=== PATIENT | male | born 1960 | race Hispanic/Latino ===

== ENCOUNTER 2022-01-29 11:42 | Emergency (ER) | payer SELFPAY ==
[2022-01-29] MEDS ORDERED: SODIUM CHLORIDE 0.9% 500 ML 500 ML IV ONE (12:47)
--- NOTE | 2022-01-29 12:51 | Emergency Department Report ---
ED General Adult HPI - General Chief complaint: Seizure Stated complaint: I do not know what happened Time Seen by Provider: 01/29/22 12:38 Source: patient, EMS ( EMS documentation not available at time of chart dictation ), RN notes reviewed, old records reviewed Mode of arrival: Stretcher Limitations: No Limitations - History of Present Illness Initial comments: The patient was evaluated in the emergency department for symptoms described in the history of present illness. He/she was evaluated in the context of the global COVID-19 pandemic, which necessitated consideration that the patient might be at risk for infection with the virus that causes COVID-19. Institutional protocols and algorithms that pertain to the evaluation of patients at risk for COVID-19 are in a state of rapid change based on information released by regulatory bodies including the CDC and federal and state organizations. These policies and algorithms were followed during the patient's care in the emergency department. Please note that these policies, procedures and recommendations changed on a rapid basis. This is a pleasant and cooperative 61-year-old gentleman. He had COVID-19 last month. He is a former tobacco smoker. To the best of his knowledge, he does not have chronic medical conditions. He was at the [employer] today in his usual state of health, when he reports that he felt dizzy, lightheaded, and lost consciousness. He thinks that he hit his head. Prior to the event, he denies headache, neck pain, chest pain, abdominal pain, vomiting. He denies travel, surgery, immobilization, leg pain or leg swelling. He denies hematemesis and bright red blood per rectum. He reports that he had a similar episode of loss of consciousness a few months ago. He states that he feels like he is back to his baseline at this time. To the best of his knowledge, this is otherwise not happened -: Sudden Severity scale (0 -10): 0 Consistency: now resolved Improves with: none Worsens with: none Associated Symptoms: denies other symptoms - Related Data Home Medications Medication Instructions Recorded Confirmed Last Taken Multivitamin [Multi Vitamin Daily] 1 each PO QDAY 12/07/13 12/31/13 12/30/13 Amino Acids [High Protein] 1 each PO QDAY 12/31/13 12/31/13 12/30/13 Cyanocobalamin (Vitamin B-12) 500 mcg PO QDAY 07/12/31/13 12/30/13 [B-12] Previous Rx's Medication Instructions Recorded Last Taken Type HYDROcodone/APAP 5-325 [[place] 1 - 2 each PO Q4HR PRN #30 tablet 12/31/13 Unknown Rx 5/325] Allergies Allergy/AdvReac Type Severity Reaction Status Date / Time No Known Allergies Allergy Verified 01/29/22 11:51 ED Review of Systems ROS: Stated complaint: SEIZURE Other details as noted in HPI Constitutional: denies: fever Eyes: denies: eye discharge ENT: denies: epistaxis Respiratory: denies: cough Cardiovascular: syncope. denies: chest pain Gastrointestinal: denies: abdominal pain, nausea, vomiting, hematemesis, melena, hematochezia Genitourinary: denies: dysuria Musculoskeletal: denies: back pain Neurological: headache. denies: weakness Hematological/Lymphatic: denies: easy bleeding ED Past Medical Hx - Past Medical History Previous Medical History?: No - Social History Smoking Status: Current Every Day Smoker - Medications Home Medications: Home Medications Medication Instructions Recorded Confirmed Last Taken Type Multivitamin [Multi Vitamin Daily] 1 each PO QDAY 12/07/13 12/31/13 12/30/13 History Amino Acids [High Protein] 1 each PO QDAY 12/31/13 12/31/13 12/30/13 History Cyanocobalamin (Vitamin B-12) 500 mcg PO QDAY 12/31/13 12/31/13 12/30/13 History [B-12] HYDROcodone/APAP 5-325 [[place] 1 - 2 each PO Q4HR PRN #30 tablet 12/31/13 Unknown Rx 5/325] ED Physical Exam - General Limitations: No Limitations General appearance: alert, anxious, obese - Head Head exam: Present: atraumatic, normocephalic - Eye Eye exam: Present: normal appearance, EOMI. Absent: nystagmus - ENT ENT exam: Present: normal exam, normal orophraynx, mucous membranes moist, normal external ear exam - Neck Neck exam: Present: normal inspection, full ROM. Absent: tenderness, meningismus - Respiratory Respiratory exam: Present: normal lung sounds bilaterally. Absent: respiratory distress, wheezes, rales, rhonchi, stridor, decreased breath sounds - Cardiovascular Cardiovascular Exam: Present: normal rhythm, tachycardia, normal heart sounds. Absent: bradycardia, irregular rhythm, systolic murmur, diastolic murmur, rubs, gallop - GI/Abdominal GI/Abdominal exam: Present: soft. Absent: distended, tenderness, guarding, rebo und, rigid, pulsatile mass - Rectal Rectal exam: Present: deferred - Extremities Exam Extremities exam: Present: normal inspection - Back Exam Back exam: Present: normal inspection, full ROM. Absent: tenderness, CVA tenderness (L), paraspinal tenderness, vertebral tenderness - Neurological Exam Neurological exam: Present: alert, oriented X3, other (No facial droop. Tongue midline. Extraocular movements intact bilaterally. Facial sensation intact to light touch in V1, V2, V3 distribution bilaterally. 5 and a 5 strength in 4 extremities. Sensation intact to light touch in 4 extremities.). Absent: motor sensory deficit - Psychiatric Psychiatric exam: Present: anxious - Skin Skin exam: Present: warm, dry, intact, normal color. Absent: rash ED Course Vital Signs 01/29/22 01/29/22 11:48 12:06 Temperature 98.7 F Pulse Rate 130 H 113 H Respiratory 16 18 Rate Blood Pressure 162/81 129/79 [Left] O2 Sat by Pulse 99 91 Oximetry - Reevaluation(s) Reevaluation #1: 01/29/22 14:44 Differential diagnosis, include but not limited to: Orthostasis, vagal event, structural cardiac disease, closed head injury, syncope, seizure, pulmonary embolism, long COVID Assessment and plan: 61-year-old gentleman who was tachycardic and hypoxic, reports recent diagnosis of COVID-19 last month. Very suspicious for pulmonary embolism The patient is awake, alert, oriented, sober, of sound mind and exhibits decision-making capacity. Patient is clinically sober at this time. The cervical spine is cleared through nexus and [place] islander c spine rule Laboratory studies are reviewed and appreciated. TSH reviewed and appreciated. The patient is not encephalopathic. CT scan of the brain is negative for acute findings. CT angiogram chest is pending at this time. Have recommended admission to the medical service for tachycardia, hypoxia, syncope and abnormal EKG. Patient is ambivalent about this at this point in time. We will discuss further once CT scan chest has resulted. Transaminitis appreciated, there is no right upper quadrant tenderness 01/29/22 15:03 CT scan chest reviewed and appreciated. No pulmonary embolism was identified. Nonspecific hepatic functions and abnormalities are appreciated. Went back to discussed with patient and son at the bedside. Patient gave consent to have details of care fully discussed in front of family member. Have recommended admission to the medical service for unprovoked syncope and abnormal EKG. Patient and son discussing. Specifically discussed risks of leaving, including , disability, paralysis, loss of quality of life. Patient presents is awake, alert, oriented, sober, of sound mind and exhibits decision-making capacity. He is asking to speak to family member, and decide. 01/29/22 15:31 On final reassessment, patient is adamant that he is going to be discharged. The patient understands that he is going to be leaving against medical recommendations. Risks of leaving, including , disability, paralysis, permanent loss of quality of life are discussed with patient and his family member/son is at the bedside. Nurse Holly Preston also aware and present for conversations. Patient understands that he may return to the emergency room right away if and when he changes his mind. He is not currently hypoxic at this time. The patient currently presents is awake, alert, oriented, sober, of sound mind and exhibits decision-making capacity. He understands that he may return right away if and when he changes his mind. He is also instructed to not drive or operate motor vehicles for the next 6 months ED Medical Decision Making - Lab Data Result diagrams: 01/29/22 12:57 01/29/22 12:57 Vital Signs 01/29/22 01/29/22 11:48 12:06 Temperature 98.7 F Pulse Rate 130 H 113 H Respiratory 16 18 Rate Blood Pressure 162/81 129/79 [Left] O2 Sat by Pulse 99 91 Oximetry Lab Results 01/29/22 01/29/22 01/29/22 Range/Units 12:57 12:57 12:57 WBC 5.8 (4.5-11.0) K/mm3 RBC 4.29 (3.65-5.03) M/mm3 Hgb 14.1 (11.8-15.2) gm/dl Hct 41.8 (35.5-45.6) % MCV 97 H (84-94) fl MCH 33 H (28-32) pg MCHC 34 (32-34) % RDW 14.8 (13.2-15.2) % Plt Count 69 L (140-440) K/mm3 Lymph % (Auto) 15.3 (13.4-35.0) % [place] % (Auto) 10.4 H (0.0-7.3) % Eos % (Auto) 1.1 (0.0-4.3) % Baso % (Auto) 0.6 (0.0-1.8) % Lymph # (Auto) 0.9 L (1.2-5.4) K/mm3 [place] # (Auto) 0.6 (0.0-0.8) K/mm3 Eos # (Auto) 0.1 (0.0-0.4) K/mm3 Baso # (Auto) 0.0 (0.0-0.1) K/mm3 Seg Neutrophils % 72.6 H (40.0-70.0) % Seg Neutrophils # 4.2 (1.8-7.7) K/mm3 PT 14.6 (12.2-14.9) Sec. INR 1.03 (0.87-1.13) D-Dimer 250.77 H (0-234) ng/mlDDU Sodium 140 (137-145) mmol/L Potassium 4.2 (3.6-5.0) mmol/L Chloride 105.3 (98-107) mmol/L Carbon Dioxide 20 L (22-30) mmol/L Anion Gap 19 mmol/L BUN 15 (9-20) mg/dL Creatinine 0.8 (0.8-1.3) mg/dL Estimated GFR > 60 ml/min BUN/Creatinine Ratio 19 % Glucose 124 H (75-100) mg/dL Calcium 9.1 (8.4-10.2) mg/dL Magnesium 2.00 (1.7-2.3) mg/dL Total Bilirubin 0.80 (0.1-1.2) mg/dL AST 100 H (5-40) units/L ALT 76 H (7-56) units/L Alkaline Phosphatase 124 (35-129) units/L Total Creatine Kinase (55-170) units/L Troponin T < 0.010 (0.00-0.029) ng/mL Total Protein 8.3 H (6.3-8.2) g/dL Albumin 3.7 L (3.9-5) g/dL Albumin/Globulin Ratio 0.8 % TSH (0.270-4.200) mlU/mL Salicylates (2.8-20.0) mg/dL Acetaminophen (10.0-30.0) ug/mL Plasma/Serum Alcohol (0-0.07) % 01/29/22 01/29/22 01/29/22 Range/Units 12:57 12:57 12:57 WBC (4.5-11.0) K/mm3 RBC (3.65-5.03) M/mm3 Hgb (11.8-15.2) gm/dl Hct (35.5-45.6) % MCV (84-94) fl MCH (28-32) pg MCHC (32-34) % RDW (13.2-15.2) % Plt Count (140-440) K/mm3 Lymph % (Auto) (13.4-35.0) % [place] % (Auto) (0.0-7.3) % Eos % (Auto) (0.0-4.3) % Baso % (Auto) (0.0-1.8) % Lymph # (Auto) (1.2-5.4) K/mm3 [place] # (Auto) (0.0-0.8) K/mm3 Eos # (Auto) (0.0-0.4) K/mm3 Baso # (Auto) (0.0-0.1) K/mm3 Seg Neutrophils % (40.0-70.0) % Seg Neutrophils # (1.8-7.7) K/mm3 PT (12.2-14.9) Sec. INR (0.87-1.13) D-Dimer (0-234) ng/mlDDU Sodium (137-145) mmol/L Potassium (3.6-5.0) mmol/L Chloride (98-107) mmol/L Carbon Dioxide (22-30) mmol/L Anion Gap mmol/L BUN (9-20) mg/dL Creatinine (0.8-1.3) mg/dL Estimated GFR ml/min BUN/Creatinine Ratio % Glucose (75-100) mg/dL Calcium (8.4-10.2) mg/dL Magnesium (1.7-2.3) mg/dL Total Bilirubin (0.1-1.2) mg/dL AST (5-40) units/L ALT (7-56) units/L Alkaline Phosphatase (35-129) units/L Total Creatine Kinase (55-170) units/L Troponin T (0.00-0.029) ng/mL Total Protein (6.3-8.2) g/dL Albumin (3.9-5) g/dL Albumin/Globulin Ratio % TSH 14.730 H (0.270-4.200) mlU/mL Salicylates < 0.3 L (2.8-20.0) mg/dL Acetaminophen 5.0 L (10.0-30.0) ug/mL Plasma/Serum Alcohol (0-0.07) % 01/29/22 01/29/22 Range/Units 12:57 12:57 WBC (4.5-11.0) K/mm3 RBC (3.65-5.03) M/mm3 Hgb (11.8-15.2) gm/dl Hct (35.5-45.6) % MCV (84-94) fl MCH (28-32) pg MCHC (32-34) % RDW (13.2-15.2) % Plt Count (140-440) K/mm3 Lymph % (Auto) (13.4-35.0) % [place] % (Auto) (0.0-7.3) % Eos % (Auto) (0.0-4.3) % Baso % (Auto) (0.0-1.8) % Lymph # (Auto) (1.2-5.4) K/mm3 [place] # (Auto) (0.0-0.8) K/mm3 Eos # (Auto) (0.0-0.4) K/mm3 Baso # (Auto) (0.0-0.1) K/mm3 Seg Neutrophils % (40.0-70.0) % Seg Neutrophils # (1.8-7.7) K/mm3 PT (12.2-14.9) Sec. INR (0.87-1.13) D-Dimer (0-234) ng/mlDDU Sodium (137-145) mmol/L Potassium (3.6-5.0) mmol/L Chloride (98-107) mmol/L Carbon Dioxide (22-30) mmol/L Anion Gap mmol/L BUN (9-20) mg/dL Creatinine (0.8-1.3) mg/dL Estimated GFR ml/min BUN/Creatinine Ratio % Glucose (75-100) mg/dL Calcium (8.4-10.2) mg/dL Magnesium (1.7-2.3) mg/dL Total Bilirubin (0.1-1.2) mg/dL AST (5-40) units/L ALT (7-56) units/L Alkaline Phosphatase (35-129) units/L Total Creatine Kinase 127 (55-170) units/L Troponin T (0.00-0.029) ng/mL Total Protein (6.3-8.2) g/dL Albumin (3.9-5) g/dL Albumin/Globulin Ratio % TSH (0.270-4.200) mlU/mL Salicylates (2.8-20.0) mg/dL Acetaminophen (10.0-30.0) ug/mL Plasma/Serum Alcohol < 0.01 (0-0.07) % - EKG Data -: EKG Interpreted by In EKG shows normal: sinus rhythm Rate: tachycardia - EKG Data When compared to previous EKG there are: previous EKG unavailable 01/29/22 14:42 The EKG is interpreted at 12: 44 Sinus rhythm, tachycardia, rate 107 bpm. Borderline rightward axis deviation, right bundle branch block, QTC 4 9 7 ms. Denies chest pain. This is an abnormal EKG. This is not a STEMI. - Radiology Data Radiology results: pending, report reviewed, image reviewed CT head/brain wo con INDICATION: syncope and closed head injury. TECHNIQUE: Routine CT head without contrast. All CT scans at this location are performed using CT dose reduction for ALARA by means of automated exposure control. COMPARISON: None. FINDINGS: BRAIN / INTRACRANIAL CONTENTS: No acute hemorrhage, brain edema, mass effect, or hydrocephalus. Normal echeverria-white differentiation. No chronic infarct or focal atrophy. Normal brain volume and ventricular/sulcal size for age. CALVARIUM/SKULL BASE/CRANIOCERVICAL JUNCTION: No evidence of fracture. ORBITS: No significant abnormality of visualized orbits. SINUSES / MASTOIDS: No significant abnormality of visualized sinuses and mastoid air cells. ADDITIONAL FINDINGS: None. IMPRESSION: 1. No acute post- traumatic intracranial abnormality. Signer Name: Gavin Cordero MD Signed: 01/29/2022 1:17 PM Workstation Name: [id number] CTA CHEST WITH CONTRAST INDICATION / CLINICAL INFORMATION: syncope and closed head injury. TECHNIQUE: Axial CT images were obtained through the chest after injection of 100 cc Omnipaque 350 IV contrast. 3 plane MIP and/or 3D reconstructions were produced. All CT scans at this location are performed using CT dose reduction for ALARA by means of automated exposure control. COMPARISON: None available. FINDINGS: PULMONARY ARTERIES: No pulmonary emboli. THORACIC AORTA: Mild atherosclerotic calcification without acute abnormality. HEART: No significant abnormality. CORONARY ARTERY CALCIFICATION: Mild. MEDIASTINUM / CLAUDINE: No significant abnormality. PLEURA: No pleural effusion. No pneumothorax. LUNGS: No acute air space or interstitial disease. Scarring versus atelectasis within the posterior right lower lobe. ADDITIONAL FINDINGS: None. UPPER ABDOMEN: Suggestion of a dilated pancreatic duct and dilated common bile duct. SKELETAL STRUCTURES: No significant osseous abnormality. IMPRESSION: 1. No CT evidence for pulmonary embolism. 2. Suggestion of a dilated pancreatic duct and common bile duct. When clinically feasible a right upper quadrant ultrasound is recommended for further evaluation. Signer Name: Uriel Packer DO Critical Care Time: Yes Critical care time in (mins) excluding proc time.: 35 Critical care attestation.: If time is entered above; I have spent that time in minutes in the direct care of this critically ill patient, excluding procedure time. ED Disposition Clinical Impression: Hypoxia, Closed head injury, Transaminitis Disposition: 07 LEFT AGAINST MEDICAL ADVICE Is pt being admited?: No Does the pt Need Aspirin: No Condition: Undetermined Additional Instructions: As we discussed, you have left the hospital/emergency room AGAINST MEDICAL ADVICE. By leaving, you risked , disability, paralysis, permanent loss of quality of life. The ER is open 24 hours a day, 7 days a week. It never closes. Please return to the emergency room right away if and when you change your mind. If you decide not to return to the emergency room, please follow-up with the listed physician referrals as soon as possible. Do not drive or operate motor vehicles for the next 6 months, or until cleared to do so by a primary care doctor or general labor. Follow-up as soon as possible with an outpatient primary care doctor or general labor Avoid consumption of alcohol, tobacco, smoke products, and acetaminophen/Tylenol May go into the healthcare.gov website, and obtain insurance through affordable care act/Medicaid expansion Referrals: [facility] [Provider Group] - [facility] [Provider Group] - [facility] [Provider Group] - [facility] [Provider Group] - [facility] Forms: AMA Form
[2022-01-29 13:17] LABS: Basophils % (Auto) 0.6 % (0.0-1.8); Eosinophils # (Auto) 0.1 K/mm3 (0.0-0.4); Eosinophils % (Auto) 1.1 % (0.0-4.3); Hematocrit 41.8 % (35.5-45.6); Hemoglobin 14.1 gm/dl (11.8-15.2); Lymphocytes # (Auto) 0.9 K/mm3 (1.2-5.4); Lymphocytes % (Auto) 15.3 % (13.4-35.0); Mean Corpuscular HGB Conc 34 % (32-34); Mean Corpuscular Volume 97 fl (84-94); Monocytes # (Auto) 0.6 K/mm3 (0.0-0.8); Monocytes % (Auto) 10.4 % (0.0-7.3); Platelet Count 69 K/mm3 (140-440); Red Blood Count 4.29 M/mm3 (3.65-5.03); Red Cell Distribution Width 14.8 % (13.2-15.2)
[2022-01-29 13:26] LABS: INR 1.03 (0.87-1.13)
[2022-01-29 13:43] LABS: Alanine Aminotransferase 76 units/L (7-56); Albumin 3.7 g/dL (3.9-5); BUN/Creatinine Ratio 19; Blood Urea Nitrogen 15 mg/dL (9-20); Calcium 9.1 mg/dL (8.4-10.2); Hemolysis Index 11
--- NOTE | 2022-01-29 14:22 | Cat Scan Report ---
CT head/brain wo con INDICATION: syncope and closed head injury. TECHNIQUE: Routine CT head without contrast. All CT scans at this location are performed using CT dose reduction for ALARA by means of automated exposure control. COMPARISON: None. FINDINGS: BRAIN / INTRACRANIAL CONTENTS: No acute hemorrhage, brain edema, mass effect, or hydrocephalus. Polina l echeverria-white differentiation. No chronic infarct or focal atrophy. Normal brain volume and ventricula r/sulcal size for age. CALVARIUM/SKULL BASE/CRANIOCERVICAL JUNCTION: No evidence of fracture. ORBITS: No significant abnormality of visualized orbits. SINUSES / MASTOIDS: No significant abnormality of visualized sinuses and mastoid air cells. ADDITIONAL FINDINGS: None. IMPRESSION: 1. No acute post-traumatic intracranial abnormality. Signer Name: Gavin Cordero MD Signed: 01/29/2022 2:17 PM Workstation Name: [id number]
--- NOTE | 2022-01-29 14:48 | Cat Scan Report ---
CTA CHEST WITH CONTRAST INDICATION / CLINICAL INFORMATION: syncope and closed head injury. TECHNIQUE: Axial CT images were obtained through the chest after injection of 100 cc Omnipaque 350 IV contrast. 3 plane MIP and/or 3D reconstructions were produced. All CT scans at this location are per formed using CT dose reduction for ALARA by means of automated exposure control. COMPARISON: None available. FINDINGS: PULMONARY ARTERIES: No pulmonary emboli. THORACIC AORTA: Mild atherosclerotic calcification without acute abnormality. HEART: No significant abnormality. CORONARY ARTERY CALCIFICATION: Mild. MEDIASTINUM / CLAUDINE: No significant abnormality. PLEURA: No pleural effusion. No pneumothorax. LUNGS: No acute air space or interstitial disease. Scarring versus atelectasis within the posterior r ight lower lobe. ADDITIONAL FINDINGS: None. UPPER ABDOMEN: Suggestion of a dilated pancreatic duct and dilated common bile duct. SKELETAL STRUCTURES: No significant osseous abnormality. IMPRESSION: 1. No CT evidence for pulmonary embolism. 2. Suggestion of a dilated pancreatic duct and common bile duct. When clinically feasible a right upp er quadrant ultrasound is recommended for further evaluation. Signer Name: Uriel Packer DO Signed: 01/29/2022 2:44 PM Workstation Name: [id number]
[2022-01-29 15:46] VITALS: BP 123/78
--- NOTE | 2022-01-31 14:38 | Electrocardiograph Report ---
[facility] Test Date: 2022-01-29 Test Time: 12:44:05 Pat Name: ANDRES JUDGE Department: Room: Gender: M Residential Framing Carpenter: MELVINA : 1960 Requested By: NANCY VAIL Order Number: [id number] Reading MD: Luisito Cruz Measurements Intervals Mcdonald Rate: 107 P: 67 NH: 175 QRS: 77 QRSD: 149 T: -21 QT: 372 QTc: 497 Interpretive Statements Sinus tachycardia Right bundle branch block No previous ECG available for comparison Electronically Signed On 01-31-2022 14:37:47 EDT by Luisito Cruz
== END 2022-01-29 15:47 | disposition left against medical advice (07) ==
LOC: ED 11:42
DX: R09.02 Hypoxemia (principal); S09.90XA Unspecified injury of head, initial encounter; X58.XXXA Exposure to other specified factors, initial encounter; Y93.89 Activity, other specified; Y92.89 Other specified places as the place of occurrence of the external cause; Y99.8 Other external cause status; R74.01 Elevation of levels of liver transaminase levels
CPT/HCPCS: 36415; 70450; 71275; 80053; 82550; 83735; 84443; 84484; 85025; 85379; 85610; 93005; 99284; J7040; Q9967; 80320; G0480